=== PATIENT | male | born 1985 | race Hispanic/Latino ===

== ENCOUNTER 2023-05-19 13:32 | Emergency (ER) | payer OTHER ==
[~2023-05-19] VITALS: Ht 167.6 cm; Wt 80.0 kg
[2023-05-19] MEDS ORDERED: MUPIROCIN2 % EX (14:32)
[2023-05-19] MEDS ORDERED: CEPHALEXIN500 M1 PO (14:32)
[2023-05-19 16:29] VITALS: BP 142/89
== END 2023-05-19 16:35 | disposition home or self-care (01) | DRG 605 ==
LOC: ED 13:32
DX: S61.215A Laceration without foreign body of left ring finger without damage to nail, initial encounter (principal); W20.8XXA Other cause of strike by thrown, projected or falling object, initial encounter; Y92.89 Other specified places as the place of occurrence of the external cause; Y99.0 Civilian activity done for income or pay